=== PATIENT | female | born 1980 | race Caucasian/White ===

== ENCOUNTER 2018-04-05 06:21 | Inpatient (IN) | payer OTHER ==
[~2018-04-05] VITALS: Ht 172.7 cm; Wt 120.9 kg
[~2018-04-05 06:21] MED LIST: ALPR-475 PO; PREN1TAB60 PO
[2018-04-05] MEDS ORDERED: OXYTOCIN 30U/ 0.9% NaCL 500ML 500 ML IV ONE (06:23)
[2018-04-05] MEDS ORDERED: OXYTOCIN 30U/ 0.9% NaCL 500ML 500 ML IV PRN (06:23)
[2018-04-05] MEDS ORDERED: FENTANYL PF 100 MCG/2ML IV PRN (06:30)
[2018-04-05] MEDS ORDERED: OXYTOCIN 30U/ 0.9% NaCL 500ML 500 ML ONE (06:30)
[2018-04-05] MEDS ORDERED: ONDANSETRON 2MG/ML, 2ML IVPush PRN (06:30)
[2018-04-05] MEDS ORDERED: NEWBORN KIT ONE (06:30)
[2018-04-05 06:34] VITALS: BP 120/69
[2018-04-05 06:45] LABS: BASOPHILS # (AUTO) 0.06 x10^3/uL (0-0.1); BASOPHILS % (AUTO) 1 % (0-1); EOSINOPHILS # (AUTO) 0.08 x10^3/uL (0-0.4); EOSINOPHILS % (AUTO) 1 % (1-7); LYMPHOCYTES # (AUTO) 1.25 x10^3/uL (1-3.4); LYMPHOCYTES % (AUTO) 16 % (22-44); MD NO; MEAN CORPUSCULAR HEMOGLOBIN 32.8 pg (27.0-34.8); MEAN CORPUSCULAR HGB CONC 33.4 g/dL (32.4-35.8); MEAN CORPUSCULAR VOLUME 98.1 fL (80-100); MEAN PLATELET VOLUME 9.3 fL (7.4-10.4); MONOCYTES # (AUTO) 0.42 x10^3/uL (0.2-0.8); MONOCYTES % (AUTO) 5 % (2-9); NEUTROPHILS # (AUTO) 6.18 x10^3/uL (1.8-6.8); NEUTROPHILS % (AUTO) 77 % (42-75); PLATELET COUNT 180 x10^3/uL (130-400); RED BLOOD COUNT 3.81 x10^6/uL (3.82-5.3); RED CELL DISTRIBUTION WIDTH 16.3 % (9.6-15.2)
[2018-04-05] MEDS: LACTATED RINGERS 1,000 ML IV SCH ×2 (06:50→14:50)
[2018-04-05] MEDS ORDERED: DIPH,PERTUSS(ACELL),TET VAC/PF NC IM-VACC ONE ×2 (09:36→10:30)
[2018-04-05] MEDS ORDERED: LIDOCAINE/PF 1%, 30ML ONE (13:37)
[2018-04-05] MEDS ORDERED: MISOPROSTOL 200 MCG TABLET ONE (13:37)
[2018-04-05] MEDS ORDERED: FENTANYL PF 100 MCG/2ML ONE ×3 (17:04→19:42)
[2018-04-05] MEDS: FENTANYL PF 100 MCG/2ML IVPush PRN ×2 (17:08→18:53)
[2018-04-05 19:27] VITALS: BP 123/60
[2018-04-05] MEDS ORDERED: MISOPROSTOL 200 MCG TABLET PR PRN (21:00)
[2018-04-05] MEDS ORDERED: HYDROcodone/APAP 5/325 TABLET PO PRN (21:00)
[2018-04-05] MEDS ORDERED: IBUPROFEN 600 MG TABLET ONE (21:05)
[2018-04-05] MEDS ORDERED: OXYcodone/APAP 5/325MG TABLET ONE (21:05)
[2018-04-05] MEDS: IBUPROFEN 600 MG TABLET PO PRN (21:07)
[2018-04-05] MEDS: OXYTOCIN 30U/ 0.9% NaCL 500ML 500 ML IV SCH (21:07)
[2018-04-05] MEDS ORDERED: HYDROcodone/APAP 5/325 TABLET ONE (21:08)
[2018-04-05 22:20] VITALS: BP 125/74
[2018-04-06 03:12] VITALS: BP 112/72
[2018-04-06 05:23] LABS: BASOPHILS # (AUTO) 0.04 x10^3/uL (0-0.1); BASOPHILS % (AUTO) 0 % (0-1); EOSINOPHILS # (AUTO) 0.09 x10^3/uL (0-0.4); EOSINOPHILS % (AUTO) 1 % (1-7); LYMPHOCYTES # (AUTO) 1.47 x10^3/uL (1-3.4); LYMPHOCYTES % (AUTO) 10 % (22-44); MD NO; MEAN CORPUSCULAR HEMOGLOBIN 33.3 pg (27.0-34.8); MEAN CORPUSCULAR HGB CONC 33.7 g/dL (32.4-35.8); MEAN CORPUSCULAR VOLUME 98.8 fL (80-100); MEAN PLATELET VOLUME 9.4 fL (7.4-10.4); MONOCYTES # (AUTO) 0.73 x10^3/uL (0.2-0.8); MONOCYTES % (AUTO) 5 % (2-9); NEUTROPHILS # (AUTO) 12.57 x10^3/uL (1.8-6.8); NEUTROPHILS % (AUTO) 84 % (42-75); PLATELET COUNT 175 x10^3/uL (130-400); RED BLOOD COUNT 3.43 x10^6/uL (3.82-5.3); RED CELL DISTRIBUTION WIDTH 15.8 % (9.6-15.2)
[2018-04-06 05:45] VITALS: BP 114/74
[2018-04-06] MEDS: OXYTOCIN 30U/ 0.9% NaCL 500ML 500 ML IV SCH ×2 (06:32→16:37)
[2018-04-06] MEDS: PRENATAL VIT/IRON/FA 1 EACH TABLET PO SCH (07:54)
[2018-04-06] MEDS: IBUPROFEN 600 MG TABLET PO PRN (07:55)
[2018-04-06 08:00] VITALS: BP 115/70
[2018-04-06 12:00] VITALS: BP 127/85
[2018-04-06 16:00] VITALS: BP 114/73
[2018-04-06 19:50] VITALS: BP 121/74
[2018-04-07] MEDS: OXYTOCIN 30U/ 0.9% NaCL 500ML 500 ML IV SCH ×2 (02:37→12:37)
[2018-04-07] MEDS: IBUPROFEN 600 MG TABLET PO PRN (05:07)
[2018-04-07 07:15] VITALS: BP 113/74
[2018-04-07] MEDS: PRENATAL VIT/IRON/FA 1 EACH TABLET PO SCH (08:11)
== END 2018-04-07 13:35 | disposition home or self-care (01) | DRG 775 ==
LOC: LDIP 06:21 → 2NW 22:05
PROVIDERS: ADMIT Obstetrics & Gynecology; ATTEND Obstetrics & Gynecology
PROC: 10E0XZZ Delivery of Products of Conception, External Approach (ICD-10-PCS; principal; 2018-04-05)
PROC: 0KQM0ZZ Repair Perineum Muscle, Open Approach (ICD-10-PCS; 2018-04-05)
DX: O70.1 Second degree perineal laceration during delivery (principal); Z37.0 Single live birth; Z3A.39 39 weeks gestation of pregnancy
CPT/HCPCS: 36415; 85025; 86850; 86900; 90715; J3010; J2590; J7120

== ENCOUNTER 2019-09-28 06:11 | Inpatient (IN) | payer OTHER ==
[~2019-09-28] VITALS: Ht 172.7 cm; Wt 116.8 kg
[~2019-09-28 06:11] MED LIST changes: -ALPR-475 PO; +ALPR0.5T7 PO
[2019-09-28] MEDS ORDERED: OXYTOCIN 30U/ 0.9% NaCL 500ML 500 ML IV ONE (06:13)
[2019-09-28] MEDS ORDERED: OXYTOCIN 30U/ 0.9% NaCL 500ML 500 ML IV PRN (06:13)
[2019-09-28] MEDS: D5%-LACTATED RINGERS 1,000 ML IV SCH ×3 (06:14→22:14)
[2019-09-28] MEDS ORDERED: FENTANYL/BUPIV./NS/PF 250 ML EPIDCONT SCH (06:16)
[2019-09-28] MEDS ORDERED: MISOPROSTOL 25 MCG TABLET ONE (06:27)
[2019-09-28] MEDS ORDERED: OXYTOCIN 30U/ 0.9% NaCL 500ML 500 ML ONE (06:27)
[2019-09-28] MEDS ORDERED: FENTANYL PF 100 MCG/2ML IV PRN (06:30)
[2019-09-28] MEDS ORDERED: METOCLOPRAMIDE 5 MG/ML, 2ML IVPush PRN (06:30)
[2019-09-28] MEDS ORDERED: ALUMINUM/MAG/SIMETHICONE 30 ML UDC PO PRN (06:30)
[2019-09-28] MEDS ORDERED: TERBUTALINE 1 MG/ML, 1ML SQ PRN (06:30)
[2019-09-28] MEDS ORDERED: MISOPROSTOL 25 MCG TABLET VG PRN (06:30)
[2019-09-28] MEDS ORDERED: SODIUM CITRATE/CITRIC ACID 30 ML UDC PO PRN (06:30)
[2019-09-28] MEDS ORDERED: ONDANSETRON 2MG/ML, 2ML IVPush PRN (06:30)
[2019-09-28] MEDS ORDERED: TERBUTALINE 1 MG/ML, 1ML IVPush PRN (06:30)
[2019-09-28] MEDS ORDERED: CALCIUM CARBONATE 500 MG TAB.CHEW PO PRN (06:30)
[2019-09-28] MEDS ORDERED: LACTATED RINGERS 1,000 ML IVBOLUS PRN (06:30)
[2019-09-28] MEDS: LACTATED RINGERS 1,000 ML IV SCH ×3 (06:34→21:45)
[2019-09-28 07:06] LABS: BASOPHILS # (AUTO) 0.01 x10^3/uL (0-0.1); BASOPHILS % (AUTO) 0 % (0-1); EOSINOPHILS # (AUTO) 0.05 x10^3/uL (0-0.4); EOSINOPHILS % (AUTO) 1 % (1-7); LYMPHOCYTES # (AUTO) 0.84 x10^3/uL (1-3.4); LYMPHOCYTES % (AUTO) 12 % (22-44); MD NO; MEAN CORPUSCULAR HEMOGLOBIN 34.1 pg (27.0-34.8); MEAN CORPUSCULAR HGB CONC 33.8 g/dL (32.4-35.8); MEAN CORPUSCULAR VOLUME 100.7 fL (80-100); MEAN PLATELET VOLUME 9.5 fL (7.4-10.4); MONOCYTES # (AUTO) 0.31 x10^3/uL (0.2-0.8); MONOCYTES % (AUTO) 4 % (2-9); NEUTROPHILS # (AUTO) 5.88 x10^3/uL (1.8-6.8); NEUTROPHILS % (AUTO) 83 % (42-75); PLATELET COUNT 147 x10^3/uL (130-400); RED BLOOD COUNT 3.51 x10^6/uL (3.82-5.3); RED CELL DISTRIBUTION WIDTH 16.8 % (9.6-15.2)
[2019-09-28] MEDS ORDERED: FENTANYL PF 100 MCG/2ML ONE ×3 (18:05→22:22)
[2019-09-28] MEDS: FENTANYL PF 100 MCG/2ML IVPush PRN ×3 (18:12→22:23)
[2019-09-29] MEDS ORDERED: CALCIUM CARBONATE 500 MG TAB.CHEW PO PRN
[2019-09-29] MEDS ORDERED: DOCUSATE 100 MG CAPSULE PO PRN
[2019-09-29] MEDS ORDERED: MISOPROSTOL 200 MCG TABLET PR PRN
[2019-09-29] MEDS ORDERED: SIMETHICONE 80 MG CHEW TAB PO PRN
[2019-09-29] MEDS ORDERED: METHYLERGONOVINE 0.2 MG/ML IM PRN
[2019-09-29] MEDS ORDERED: OXYTOCIN 30U/ 0.9% NaCL 500ML 500 ML ONE
[2019-09-29] MEDS ORDERED: ONDANSETRON 2MG/ML, 2ML IV PRN
[2019-09-29] MEDS ORDERED: CARBOPROST TROMETHAMINE 250 MCG/ML, 1ML IM PRN
[2019-09-29] MEDS ORDERED: IBUPROFEN 600 MG TABLET PO PRN
[2019-09-29] MEDS ORDERED: HYDROcodone/APAP 5/325 TABLET PO PRN ×2
[2019-09-29] MEDS ORDERED: ACETAMINOPHEN 325 MG TABLET PO PRN
[2019-09-29] MEDS: OXYTOCIN 30U/ 0.9% NaCL 500ML 500 ML IV SCH ×3 (00:03→19:51)
[2019-09-29 02:00] VITALS: BP 116/76
[2019-09-29 08:00] LABS: MEAN CORPUSCULAR HEMOGLOBIN 34.3 pg (27.0-34.8); MEAN CORPUSCULAR HGB CONC 33.5 g/dL (32.4-35.8); MEAN CORPUSCULAR VOLUME 102.3 fL (80-100); MEAN PLATELET VOLUME 9.3 fL (7.4-10.4); PLATELET COUNT 157 x10^3/uL (130-400); RED BLOOD COUNT 3.44 x10^6/uL (3.82-5.3); RED CELL DISTRIBUTION WIDTH 16.5 % (9.6-15.2)
[2019-09-29 08:34] VITALS: BP 127/77
[2019-09-29 08:37] LABS: BASOPHILS % (AUTO) 0 % (0-1); EOSINOPHILS # (AUTO) 0.06 x10^3/uL (0-0.4); EOSINOPHILS % (AUTO) 1 % (1-7); LYMPHOCYTES # (AUTO) 0.83 x10^3/uL (1-3.4); LYMPHOCYTES % (AUTO) 7 % (22-44); MD SCAN; MONOCYTES # (AUTO) 0.43 x10^3/uL (0.2-0.8); MONOCYTES % (AUTO) 4 % (2-9); NEUTROPHILS # (AUTO) 9.79 x10^3/uL (1.8-6.8); NEUTROPHILS % (AUTO) 88 % (42-75)
[2019-09-29] MEDS: PRENATAL VIT/IRON/FA 1 EACH TABLET PO SCH (08:47)
[2019-09-29 13:00] VITALS: BP 122/74
[2019-09-29 17:00] VITALS: BP 124/81
[2019-09-29 19:30] VITALS: BP 110/72
[2019-09-30] MEDS: OXYTOCIN 30U/ 0.9% NaCL 500ML 500 ML IV SCH (05:51)
[2019-09-30 07:10] VITALS: BP 112/65
[2019-09-30] MEDS: PRENATAL VIT/IRON/FA 1 EACH TABLET PO SCH (09:13)
== END 2019-09-30 10:30 | disposition home or self-care (01) | DRG 807 ==
LOC: LDIP 06:11 → 2NW 09-29 01:38
PROVIDERS: ADMIT Obstetrics & Gynecology; ATTEND Obstetrics & Gynecology
PROC: 10E0XZZ Delivery of Products of Conception, External Approach (ICD-10-PCS; principal; 2019-09-28)
PROC: 10907ZC Drainage of Amniotic Fluid, Therapeutic from Products of Conception, Via Natural or Artificial Opening (ICD-10-PCS; 2019-09-28)
PROC: 3E033VJ Introduction of Other Hormone into Peripheral Vein, Percutaneous Approach (ICD-10-PCS; 2019-09-28)
PROC: 0HQ9XZZ Repair Perineum Skin, External Approach (ICD-10-PCS; 2019-09-28)
DX: O69.81X0 Labor and delivery complicated by cord around neck, without compression, not applicable or unspecified (principal); Z37.0 Single live birth; O12.04 Gestational edema, complicating childbirth; O70.0 First degree perineal laceration during delivery; Z3A.39 39 weeks gestation of pregnancy; O99.214 Obesity complicating childbirth
CPT/HCPCS: 36415; 85025; 86592; 86850; 86900; G0378; J3010; J2590; J7120